=== PATIENT | male | born 1995 | race Caucasian/White ===

== ENCOUNTER 2017-02-25 01:18 | Emergency (ER) | payer OTHER ==
[2017-02-25] MEDS ORDERED: IBUPROFEN 600 MG TAB PO ONE (01:37)
[2017-02-25] MEDS ORDERED: ONDANSETRON DISINTEGRATING 4 MG TAB PO ONE (01:39)
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
[2017-02-25 02:59] VITALS: BP 148/84; PULSE 80; RESP 16; TEMP 98.2; O2SAT 92
== END 2017-02-25 02:58 | disposition home or self-care (01) ==
DX: S09.90XA Unspecified injury of head, initial encounter (principal); V49.59XA Passenger injured in collision with other motor vehicles in traffic accident, initial encounter; Y92.410 Unspecified street and highway as the place of occurrence of the external cause; F17.200 Nicotine dependence, unspecified, uncomplicated

== ENCOUNTER 2017-09-24 14:11 | Emergency (ER) | payer OTHER ==
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
== END 2017-09-24 15:16 | disposition home or self-care (01) ==
DX: S92.354A Nondisplaced fracture of fifth metatarsal bone, right foot, initial encounter for closed fracture (principal); F17.200 Nicotine dependence, unspecified, uncomplicated; X50.9XXA Other and unspecified overexertion or strenuous movements or postures, initial encounter
CPT/HCPCS: L4386